=== PATIENT | female | born 2005 | race African-American/Black ===

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

== ENCOUNTER 2025-07-18 16:50 | Emergency (ER) | payer SELFPAY | END 2025-07-18 17:47 | disposition home or self-care (01) | LOC: CSHERS 16:50 | DX: R55 Syncope and collapse (principal); F17.290 Nicotine dependence, other tobacco product, uncomplicated | CPT/HCPCS: 93005; 93010; 99284 ==